=== PATIENT | male | born 1960 | race African-American/Black ===

== ENCOUNTER 2017-02-28 09:28 | Inpatient (IN) | payer OTHER ==
[2017-02-28 11:52] VITALS: BMI 23.1
--- NOTE | 2017-02-28 16:19 | HP ---
COWS - Scale Resting Pulse: 1= [place] 81-100 Sweatin=Flushed/Facial Moisture Restless Observation: 3= Extraneous Movement Pupil Size: 2= Moderately Dilated Bone or Joint Aches: 2= Severe Diffuse Aches Runny Nose/ Eye Tearin= Runny Nose/Eyes GI Upset > 30mins: 3= Vomiting/Diarrhea Tremor Observation: 2= Slight Tremor Visible Yawning Observation: 2= >3x During Session Anxiety or Irritability: 2=Irritable/Anxious Goose Flesh Skin: 0=Smooth Skin COWS Score: 21 CIWA Score - CIWA Score Nausea/Vomitin Muscle Tremors: 3 Anxiety: 3 Agitation: 3 Paroxysmal Sweats: 1-Minimal Palms Moist Orientation: 0-Oriented Tacttile Disturbances: 2-Mild Itch/Numbness/Burn Auditory Disturbances: 2-Mild Harshness/Frighten Visual Disturbances: 2-Mild Sensitivity Headache: 2-Mild CIWA-Ar Total Score: 21 Admission ROS [facility]HS - HPI Chief Complaint: i need help help to stop using heroin,alcohol,cocaine,marijuana Allergies/Adverse Reactions: Allergies Allergy/AdvReac Type Severity Reaction Status Date / Time No Known Allergies Allergy Verified 02/28/17 12:48 History of Present Illness: this 56 years old black male with heroin,alcohol,cocaine,marijuana dependence, withdrawal symptom,seeking detox,last treatment 2 months ago unknown facility, no significant period of sobriety - Ebola screening Have you traveled outside of the country in the last 21 days: No Have you had contact with anyone from an Ebola affected area: No Have you been sick,other than usual withdrawal symptoms: No Do you have a fever: No - Review of Systems Constitutional: Chills, Diaphoresis, Loss of Appetite, Malaise, Night Sweats, Changes in sleep, Weakness, Unintentional Wgt. Loss EENT: reports: Tearing, Nose Congestion Respiratory: reports: No Symptoms reported Cardiac: reports: No Symptoms Reported GI: reports: Diarrhea, Nausea, Vomiting, Abdominal cramping : reports: No Symptoms Reported Musculoskeletal: reports: No Symptoms Reported, Back Pain Integumentary: reports: Dryness Neuro: reports: Headache, Tremors Endocrine: reports: No Symptoms Reported Hematology: reports: No Symptoms Reported Psychiatric: reports: No Sypmtoms Reported, Judgement Intact, Mood/Affect Appropiate, Orientated x3 Patient History - Patient Medical History Hx Anemia: No Hx Asthma: No Hx Chronic Obstructive Pulmonary Disease (COPD): No Hx Cancer: No Hx Cardiac Disorders: No Hx Hypertension: No Hx Hypercholesterolemia: No Hx Pacemaker: No HX Cerebrovascular Accident: No Hx Seizures: No Hx Dementia: No Hx Diabetes: No Hx Gastrointestinal Disorders: No Hx Liver Disease: No Hx Genitourinary Disorders: No Hx Sexually Transmitted Disorders: No Hx Renal Disease (ESRD): No Hx Thyroid Disease: No Hx Human Immunodeficiency Virus (HIV): No (last 10/19 negative) Hx Hepatitis C: No Hx Depression: No Hx Suicide Attempt: No Hx Bipolar Disorder: No Hx Schizophrenia: No Other Medical History: no suicidal,no homicidal - Patient Surgical History Past Surgical History: No - PPD History Previous Implant?: Yes Documented Results: Negative w/o proof Implanted On Prior [facility] Admission?: No PPD to be Administered?: Yes - Smoking Cessation Smoking history: Current every day smoker Have you smoked in the past 12 months: Yes Aproximately how many cigarettes per day: 10 Hx Chewing Tobacco Use: No Initiated information on smoking cessation: Yes 'Breaking Loose' booklet given: 02/28/17 - Substances Abused Alcohol Route: Oral Frequency: Daily Amount used: BEER(15 BOTTLES `12 OZ) Age of first use: 55 Date of Last Use: 02/28/17 Heroin Route: Inhalation Frequency: Daily Amount used: 15 BAGS Age of first use: 55 Date of Last Use: 02/28/17 Cocaine Route: Smoking Frequency: Daily Amount used: $100 Age of first use: 55 Date of Last Use: 02/28/17 Marijuana/Hashish Route: Smoking Frequency: 3-6 times per week Amount used: $30 Age of first use: 54 Date of Last Use: 02/21/17 Family Disease History - Family Disease History Family History: Denies Admission Physical Exam [facility] - Vital Signs Vital Signs: Vital Signs - 24 hr 02/28/17 11:51 Temperature 97.3 F L Pulse Rate 91 H Respiratory 18 Rate Blood Pressure 140/87 - Physical General Appearance: Yes: Moderate Distress, Tremorous, Irritable, Sweating, Anxious HEENTM: Yes: Normal ENT Inspection, JODY, Pharynx Normal Respiratory: Yes: Lungs Clear, Normal Breath Sounds, No Respiratory Distress Neck: Yes: Within Normal Limits Breast: Yes: Within Normal Limits Cardiology: Yes: Within Normal Limits, Regular Rhythm, Regular Rate, S1, S2 Abdominal: Yes: Within Normal Limits, Normal Bowel Sounds, Non Tender, Flat, Soft Genitourinary: Yes: Within Normal Limits Back: Yes: Muscle Spasm Musculoskeletal: Yes: Within Normal Limits, Muscle Pain Extremities: Yes: Tremors, Other (bluish discloration of nail of rigjht big toe, dorsalis pedis pulse srong tinea pedis poor hygene of feet) Neurological: Yes: 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 - Detox or Rehab [facility] Level of Care: Medically Managed Detox Regimen/Protocol: Methadone/Librium [facility] Breath Alcohol Content Breath Alcohol Content: 0 Urine Drug Screen - Results Drug Screen Negative: No Urine Drug Screen Results: THC-Marijuana, KEREN-Cocaine, OPI-Opiates
[2017-02-28] MEDS ORDERED: MAGNESIUM HYDROX 2400MG/30ML ORAL SUSPENSION 30 ML CUP PO PRN (16:35)
[2017-02-28] MEDS ORDERED: MENTHOL/PHENOL 1 EACH UD MM PRN (16:35)
[2017-02-28] MEDS ORDERED: guaiFENesin/D-METHORPHAN HB 10 ML UNIT-DOSE CUPS PO PRN (16:35)
[2017-02-28] MEDS ORDERED: NICOTINE POLACRILEX 2 MG GUM BC PRN (16:35)
[2017-02-28] MEDS ORDERED: MAG HYDROX/AL HYDROX/SIMETH 30 ML UNIT-DOSE CUP PO PRN (16:35)
[2017-02-28] MEDS ORDERED: P-EPHED 60MG/TRIPROLIDI 2.5MG TABLET PO PRN (16:35)
[2017-02-28] MEDS ORDERED: chlordiazePOXIDE HCL 25 MG CAPSULE PO PRN (16:35)
[2017-02-28] MEDS ORDERED: hydrOXYzine PAMOATE 25 MG CAPSULE (FP) PO PRN (16:35)
[2017-02-28] MEDS ORDERED: ACETAMINOPHEN 325 MG TABLET (FP) PO PRN (16:35)
[2017-02-28] MEDS ORDERED: MAGNESIUM CITRATE 300 ML BOTTLE PO PRN (16:35)
[2017-02-28] MEDS ORDERED: IBUPROFEN 400 MG TABLET (FP) PO PRN (16:35)
[2017-02-28] MEDS ORDERED: LOPERAMIDE HCL 2 MG CAPSULE PO PRN (16:35)
[2017-02-28] MEDS ORDERED: METHADONE HCL 10 MG TABLET (FOR DETOX USE ONLY) PO ONE ×2 (16:35→23:00)
[2017-02-28] MEDS: chlordiazePOXIDE HCL 25 MG CAPSULE PO SCH ×2 (17:59→22:33)
[2017-02-28] MEDS: NICOTINE 21 MG/24 HOURS TOPICAL PATCH TD SCH (17:59)
[2017-02-28] MEDS: TOLNAFTATE 1% CREAM 15 GM TUBE TP SCH ×2 (18:00→22:33)
[2017-02-28] MEDS ORDERED: TUBERCULIN PPD 5 TU/0.1ML VIAL ID ONE (19:17)
[2017-02-28] MEDS: THIAMINE HCL 100 MG TABLET (FP) PO SCH (22:32)
[2017-03-01] MEDS: chlordiazePOXIDE HCL 25 MG CAPSULE PO SCH ×4 (05:48→22:21)
[2017-03-01] MEDS ORDERED: METHADONE HCL 10 MG TABLET (FOR DETOX USE ONLY) PO SCH (10:00)
[2017-03-01 10:01] LABS: MCH 30.3 pg (25.7-33.7); MCHC 34.2 g/dl (32.0-35.9); MEAN CELL VOLUME 88.6 fl (80-96); MEAN PLT VOLUME 7.6 fl (7.5-11.1); PLATELET COUNT 188 K/MM3 (134-434); RDW 14.8 % (11.9-15.9); WHITE BLOOD COUNT 4.7 K/mm3 (4.0-10.0)
[2017-03-01 10:10] LABS: ALBUMIN 3.4 g/dl (3.4-5.0); ANION GAP 7 (8-16); CALCIUM 8.1 mg/dL (8.5-10.1); CO2 28 mmol/L (21-32); GLUCOSE,RANDOM 123 mg/dL (74-106)
[2017-03-01] MEDS: PRENATAL VITAMINS W/ FOLIC ACID TABLET (FP) PO SCH (10:11)
[2017-03-01] MEDS: NICOTINE 21 MG/24 HOURS TOPICAL PATCH TD SCH (10:11)
[2017-03-01 10:15] LABS: ALK PHOS 64 U/L (45-117); BILIRUBIN,TOTAL 0.5 mg/dL (0.2-1.0); CREATININE 1.3 mg/dL (0.7-1.3); SGOT/AST 40 U/L (15-37); SGPT/ALT 74 U/L (12-78); TOT PROT 6.4 g/dl (6.4-8.2)
--- NOTE | 2017-03-01 11:27 | PN ---
[facility] CIWA - CIWA Score Nausea/Vomitin-No Nausea/No Vomiting Muscle Tremors: 2 Anxiety: 4-Mod. Anxious/Guarded Agitation: 3 Paroxysmal Sweats: 1-Minimal Palms Moist Orientation: 0-Oriented Tacttile Disturbances: 3-Moderate Itch/Numb/Burn Auditory Disturbances: 0-None Visual Disturbances: 0-None Headache: 0-None Present CIWA-Ar Total Score: 13 S COWS - Scale Resting Pulse: 0= DC 80 or Below Sweatin= Chills/Flushing Restless Observation: 0= Sits Still Pupil Size: 2= Moderately Dilated Bone or Joint Aches: 4=Acute Joint/Muscle Pain Runny Nose/ Eye Tearin= Nasal Congestion GI Upset > 30mins: 1= Stomach Cramp Tremor Observation of Outstretched Hands: 2= Slight Tremor Visible Yawning Observation: 1= 1-2x During Session Anxiety or Irritability: 2=Irritable/Anxious Goose Flesh Skin: 0=Smooth Skin COWS Score: 14 S Progress Note (SOAP) Subjective: ANXIETY,IRRITABILITY,"WOOZY",FATIGUE. Objective: 03/01/17 11:27 Vital Signs Temperature 97.1 F L 03/01/17 09:30 Pulse Rate 85 03/01/17 09:30 Respiratory Rate 18 03/01/17 09:30 Blood Pressure 119/79 03/01/17 09:30 O2 Sat by Pulse Oximetry (%) Laboratory Last Values WBC 4.7 K/mm3 (4.0-10.0) 03/01/17 07:00 RBC 4.46 M/mm3 (4.00-5.60) 03/01/17 07:00 Hgb 13.5 GM/dL (11.7-16.9) 03/01/17 07:00 Hct 39.5 % (35.4-49) 03/01/17 07:00 MCV 88.6 fl (80-96) 03/01/17 07:00 MCH 30.3 pg (25.7-33.7) 03/01/17 07:00 MCHC 34.2 g/dl (32.0-35.9) 03/01/17 07:00 RDW 14.8 % (11.9-15.9) 03/01/17 07:00 Plt Count 188 K/MM3 (134-434) 03/01/17 07:00 MPV 7.6 fl (7.5-11.1) 03/01/17 07:00 Manual Slide Review No Result Required. 03/01/17 07:00 Sodium 140 mmol/L (136-145) 03/01/17 07:00 Potassium 4.0 mmol/L (3.5-5.1) 03/01/17 07:00 Chloride 105 mmol/L (98-107) 03/01/17 07:00 Carbon Dioxide 28 mmol/L (21-32) 03/01/17 07:00 Anion Gap 7 (8-16) L 03/01/17 07:00 BUN 20 mg/dL (7-18) H 03/01/17 07:00 Creatinine 1.3 mg/dL (0.7-1.3) 03/01/17 07:00 Creat Clearance w eGFR 56.90 (>60) 03/01/17 07:00 Random Glucose 123 mg/dL (74-106) H 03/01/17 07:00 Calcium 8.1 mg/dL (8.5-10.1) L 03/01/17 07:00 Total Bilirubin 0.5 mg/dL (0.2-1.0) 03/01/17 07:00 AST 40 U/L (15-37) H 03/01/17 07:00 ALT 74 U/L (12-78) 03/01/17 07:00 Alkaline Phosphatase 64 U/L (45-117) 03/01/17 07:00 Total Protein 6.4 g/dl (6.4-8.2) 03/01/17 07:00 Albumin 3.4 g/dl (3.4-5.0) 03/01/17 07:00 Assessment: 03/01/17 11:27 WITHDRAWAL SX Plan: CONTINUE DETOX. HOLD LIBRIUM AT 10 AM TODAY.
[2017-03-01] MEDS: TOLNAFTATE 1% CREAM 15 GM TUBE TP SCH ×2 (12:22→22:22)
[2017-03-01] MEDS: ARTIFICIAL TEARS (POLYVINYL ALCOHOL 1.4%) OPTH DROPS OU SCH ×2 (15:20→22:22)
--- NOTE | 2017-03-01 19:11 | PN ---
[facility] Progress Note Note: RECEIVED NURSE CALL THAT THE PATIENT REFUSES LIBRIUM 25MG X 1 DOSE TODAY
[2017-03-01 22:01] LABS: URINE APPEARANCE CLEAR; URINE BILIRUBIN NEGATIVE (NEGATIVE); URINE BLOOD NEGATIVE (NEGATIVE); URINE COLOR YELLOW; URINE GLUCOSE (UA) NEGATIVE (NEGATIVE); URINE KETONE NEGATIVE (NEGATIVE); URINE NITRITE NEGATIVE (NEGATIVE); URINE PROTEIN NEGATIVE (NEGATIVE); URINE UROBILINOGEN NEGATIVE mg/dL (0.2-1.0)
[2017-03-01] MEDS: THIAMINE HCL 100 MG TABLET (FP) PO SCH (22:21)
--- NOTE | 2017-03-02 01:02 | EKG ---
Test Reason : Blood Pressure : / mmHG Vent. Rate : 084 BPM Atrial Rate : 084 BPM P-R Int : 130 ms QRS Dur : 084 ms QT Int : 368 ms P-R-T Axes : 069 070 053 degrees QTc Int : 434 ms NORMAL SINUS RHYTHM NORMAL ECG NO PREVIOUS ECGS AVAILABLE Confirmed by HARSHAL EL, SAUL ([id number]) on 03/02/2017 1:02:13 AM Referred By: TAYA BARROSO Confirmed By:SAUL CAPUTO MD
[2017-03-02] MEDS: chlordiazePOXIDE HCL 25 MG CAPSULE PO SCH ×2 (05:59→10:36)
[2017-03-02] MEDS: ARTIFICIAL TEARS (POLYVINYL ALCOHOL 1.4%) OPTH DROPS OU SCH (06:01)
[2017-03-02 09:10] LABS: URINE LEUK ESTERASE Negative (NEGATIVE)
[2017-03-02] MEDS ORDERED: METHADONE HCL 5 MG TABLET (FOR DETOX USE ONLY) PO SCH (10:00)
[2017-03-02] MEDS: PRENATAL VITAMINS W/ FOLIC ACID TABLET (FP) PO SCH (10:36)
[2017-03-02] MEDS: TOLNAFTATE 1% CREAM 15 GM TUBE TP SCH (10:37)
[2017-03-02] MEDS: NICOTINE 21 MG/24 HOURS TOPICAL PATCH TD SCH (10:37)
--- NOTE | 2017-03-02 11:02 | PN ---
[facility] CIWA - CIWA Score Nausea/Vomitin-No Nausea/No Vomiting Muscle Tremors: 3 Anxiety: 4-Mod. Anxious/Guarded Agitation: 4-Moderately Restless Paroxysmal Sweats: 1-Minimal Palms Moist Orientation: 0-Oriented Tacttile Disturbances: 2-Mild Itch/Numbness/Burn Auditory Disturbances: 0-None Visual Disturbances: 0-None Headache: 0-None Present CIWA-Ar Total Score: 14 S COWS - Scale Resting Pulse: 1= [place] 81-100 Sweatin= Chills/Flushing Restless Observation: 3= Extraneous Movement Pupil Size: 0= Normal to Room Light Bone or Joint Aches: 2= Severe Diffuse Aches Runny Nose/ Eye Tearin= Nasal Congestion GI Upset > 30mins: 0= None Tremor Observation of Outstretched Hands: 1= Tremor [place]bit, Not Seen Yawning Observation: 1= 1-2x During Session Anxiety or Irritability: 2=Irritable/Anxious Goose Flesh Skin: 0=Smooth Skin COWS Score: 12 [facility] Progress Note (SOAP) Subjective: ANXIETY,IRRITABLE,SWEATS,INTERMITTENT SLEEP. Objective: 03/02/17 11:01 Vital Signs Temperature 95.9 F L 03/02/17 09:10 Pulse Rate 95 H 03/02/17 09:10 Respiratory Rate 18 03/02/17 09:10 Blood Pressure 115/81 03/02/17 09:10 O2 Sat by Pulse Oximetry (%) Laboratory Last Values WBC 4.7 K/mm3 (4.0-10.0) 03/01/17 07:00 RBC 4.46 M/mm3 (4.00-5.60) 03/01/17 07:00 Hgb 13.5 GM/dL (11.7-16.9) 03/01/17 07:00 Hct 39.5 % (35.4-49) 03/01/17 07:00 MCV 88.6 fl (80-96) 03/01/17 07:00 MCH 30.3 pg (25.7-33.7) 03/01/17 07:00 MCHC 34.2 g/dl (32.0-35.9) 03/01/17 07:00 RDW 14.8 % (11.9-15.9) 03/01/17 07:00 Plt Count 188 K/MM3 (134-434) 03/01/17 07:00 MPV 7.6 fl (7.5-11.1) 03/01/17 07:00 Manual Slide Review No Result Required. 03/01/17 07:00 Sodium 140 mmol/L (136-145) 03/01/17 07:00 Potassium 4.0 mmol/L (3.5-5.1) 03/01/17 07:00 Chloride 105 mmol/L (98-107) 03/01/17 07:00 Carbon Dioxide 28 mmol/L (21-32) 03/01/17 07:00 Anion Gap 7 (8-16) L 03/01/17 07:00 BUN 20 mg/dL (7-18) H 03/01/17 07:00 Creatinine 1.3 mg/dL (0.7-1.3) 03/01/17 07:00 Creat Clearance w eGFR 56.90 (>60) 03/01/17 07:00 Random Glucose 123 mg/dL (74-106) H 03/01/17 07:00 Calcium 8.1 mg/dL (8.5-10.1) L 03/01/17 07:00 Total Bilirubin 0.5 mg/dL (0.2-1.0) 03/01/17 07:00 AST 40 U/L (15-37) H 03/01/17 07:00 ALT 74 U/L (12-78) 03/01/17 07:00 Alkaline Phosphatase 64 U/L (45-117) 03/01/17 07:00 Total Protein 6.4 g/dl (6.4-8.2) 03/01/17 07:00 Albumin 3.4 g/dl (3.4-5.0) 03/01/17 07:00 Urine Color Yellow 03/01/17 16:36 Urine Appearance Clear 03/01/17 16:36 Urine pH 6.0 (5.0-8.0) 03/01/17 16:36 Ur Specific Wilson 1.016 (1.001-1.035) 03/01/17 16:36 Urine Protein Negative (NEGATIVE) 03/01/17 16:36 Urine Glucose (UA) Negative (NEGATIVE) 03/01/17 16:36 Urine Ketones Negative (NEGATIVE) 03/01/17 16:36 Urine Blood Negative (NEGATIVE) 03/01/17 16:36 Urine Nitrite Negative (NEGATIVE) 03/01/17 16:36 Urine Bilirubin Negative (NEGATIVE) 03/01/17 16:36 Urine Urobilinogen Negative mg/dL (0.2-1.0) 03/01/17 16:36 Ur Leukocyte Esterase Negative (NEGATIVE) 03/01/17 16:36 RPR Titer Nonreactive (NONREACTIVE) 03/01/17 07:00 Assessment: 03/02/17 11:02 WITHDRAWAL SX Plan: CONTINUE DETOX
[2017-03-02 13:07] VITALS: BP 109/76; PULSE 87; TEMP 97.2
[2017-03-02] MEDS ORDERED: chlordiazePOXIDE 5 MG CAPSULE PO SCH (17:00)
[2017-03-03] MEDS ORDERED: chlordiazePOXIDE HCL 10 MG CAPSULE PO SCH (17:00)
[2017-03-04] MEDS ORDERED: METHADONE HCL 10 MG TABLET (FOR DETOX USE ONLY) PO SCH (10:00)
[2017-03-05] MEDS ORDERED: METHADONE HCL 5 MG TABLET (FOR DETOX USE ONLY) PO SCH (06:00)
== END 2017-03-02 13:12 | disposition home or self-care (01) | DRG 773 ==
LOC: YASAS 09:28 → Y3N 15:53
PROVIDERS: ADMIT Internal Medicine; ATTEND Internal Medicine
PROC: HZ2ZZZZ Detoxification Services for Substance Abuse Treatment (ICD-10-PCS; principal; 2017-02-28)
DX: F11.23 Opioid dependence with withdrawal (principal); F14.20 Cocaine dependence, uncomplicated; F12.20 Cannabis dependence, uncomplicated; F17.213 Nicotine dependence, cigarettes, with withdrawal; B35.3 Tinea pedis; B35.1 Tinea unguium; Z87.898 Personal history of other specified conditions; Z59.0 Homelessness
CPT/HCPCS: 36415; 80053; 81003; 85027; 86593; 93005; 93010

== ENCOUNTER 2022-10-22 11:23 | Inpatient (IN) | payer OTHER ==
[2022-10-22] MEDS ORDERED: hydrOXYzine PAMOATE 25 MG CAPSULE (FP) PO PRN (13:13)
[2022-10-22] MEDS ORDERED: NICOTINE 10 MG CARTRIDGE (INHALER) IH PRN (13:13)
[2022-10-22] MEDS ORDERED: COLLOIDAL OATMEAL 1 BAR EACH TP PRN (13:13)
[2022-10-22] MEDS ORDERED: IBUPROFEN 400 MG TABLET (FP) PO PRN (13:13)
[2022-10-22] MEDS ORDERED: BENZOCAINE/MENTHOL (CHLORASEPTIC ) LOZENGE MM PRN (13:13)
[2022-10-22] MEDS ORDERED: NALOXONE HCL (KLOXXADO) 8 MG SPRAY NS PRN (13:13)
[2022-10-22] MEDS ORDERED: IBUPROFEN 600 MG TABLET (FP) PO PRN (13:13)
[2022-10-22] MEDS ORDERED: MAG HYDROX/AL HYDROX/SIMETH 30 ML UNIT-DOSE CUP PO PRN (13:13)
[2022-10-22] MEDS ORDERED: NALOXONE HCL 0.4 MG/ML VIAL IVPUSH PRN (13:13)
[2022-10-22] MEDS ORDERED: guaiFENesin 600 MG TABLET.ER (FP) PO PRN (13:13)
[2022-10-22] MEDS ORDERED: ACETAMINOPHEN 325 MG TABLET (FP) PO PRN (13:13)
[2022-10-22] MEDS ORDERED: LOPERAMIDE HCL 2 MG CAPSULE PO PRN (13:13)
[2022-10-22] MEDS ORDERED: BENZONATATE 200 MG CAPSULE PO PRN (13:13)
[2022-10-22] MEDS ORDERED: POLYETHYLENE GLYCOL (HEALTHYLAX) 3350 17 GM PACKET PO PRN (13:13)
[2022-10-22] MEDS ORDERED: AMMONIUM LACTATE 12% LOTION 225 GM BOTTLE TP PRN (13:13)
[2022-10-22] MEDS ORDERED: MAGNESIUM HYDROX 2400MG/30ML ORAL SUSPENSION 30 ML CUP PO PRN (13:13)
[2022-10-22] MEDS ORDERED: METHOCARBAMOL 500 MG TABLET PO PRN (13:13)
[2022-10-22] MEDS ORDERED: NICOTINE 14 MG/24 HOURS TOPICAL PATCH TD PRN (13:13)
[2022-10-22] MEDS ORDERED: NICOTINE POLACRILEX 4 MG GUM BUC PRN (13:13)
[2022-10-22] MEDS ORDERED: ALBUTEROL SO4 HFA INHALER IH PRN (13:15)
[2022-10-22] MEDS: MELATONIN 5 MG TABLETS PO SCH (21:27)
[2022-10-22] MEDS: THIAMINE HCL 100 MG TABLET (FP) PO SCH (21:27)
[2022-10-23] MEDS ORDERED: PRENATAL VITAMINS W/ FOLIC ACID TABLET (FP) PO SCH (10:00)
[2022-10-23] MEDS ORDERED: PRENATAL VITAMINS W/ FOLIC ACID TABLET (FP) PO PRN (12:35)
[2022-10-23] MEDS: THIAMINE HCL 100 MG TABLET (FP) PO SCH (21:44)
[2022-10-23] MEDS: MELATONIN 5 MG TABLETS PO SCH (21:44)
[2022-10-24] MEDS: THIAMINE HCL 100 MG TABLET (FP) PO SCH (21:31)
[2022-10-24] MEDS: MELATONIN 5 MG TABLETS PO SCH (21:31)
[2022-10-25] MEDS: MELATONIN 5 MG TABLETS PO SCH (21:32)
[2022-10-25] MEDS: THIAMINE HCL 100 MG TABLET (FP) PO SCH (21:32)
[2022-10-26] MEDS: MELATONIN 5 MG TABLETS PO SCH (21:33)
[2022-10-26] MEDS: THIAMINE HCL 100 MG TABLET (FP) PO SCH (21:33)
[2022-10-27] MEDS: MELATONIN 5 MG TABLETS PO SCH (21:47)
[2022-10-27] MEDS: THIAMINE HCL 100 MG TABLET (FP) PO SCH (21:47)
[2022-10-28] MEDS: MELATONIN 5 MG TABLETS PO SCH (21:25)
[2022-10-28] MEDS: THIAMINE HCL 100 MG TABLET (FP) PO SCH (21:25)
[2022-10-29] MEDS: THIAMINE HCL 100 MG TABLET (FP) PO SCH (21:32)
[2022-10-29] MEDS: MELATONIN 5 MG TABLETS PO SCH (21:32)
[2022-10-30 08:03] VITALS: BP 118/86; PULSE 106; RESP 18; TEMP 96.9
== END 2022-10-30 08:45 | disposition home or self-care (01) | DRG 772 ==
LOC: YASAS 11:23 → Y3E 11:24
PROVIDERS: ADMIT Allergy & Immunology; ATTEND Psychiatry & Neurology Pain Medicine
PROC: HZ42ZZZ Group Counseling for Substance Abuse Treatment, Cognitive-Behavioral (ICD-10-PCS; principal; 2022-10-22)
DX: F11.20 Opioid dependence, uncomplicated (principal); F14.20 Cocaine dependence, uncomplicated; F12.20 Cannabis dependence, uncomplicated; F17.210 Nicotine dependence, cigarettes, uncomplicated; B35.1 Tinea unguium; B35.3 Tinea pedis
CPT/HCPCS: 36415; 86803

== ENCOUNTER 2023-07-22 21:49 | Inpatient (IN) | payer OTHER ==
[2023-07-22 22:46] VITALS: BMI 25.0
[2023-07-22] MEDS ORDERED: BENZONATATE 200 MG CAPSULE PO PRN (23:27)
[2023-07-22] MEDS ORDERED: MAG HYDROX/AL HYDROX/SIMETH 30 ML UNIT-DOSE CUP PO PRN (23:27)
[2023-07-22] MEDS ORDERED: MAGNESIUM HYDROX 2400MG/30ML ORAL SUSPENSION 30 ML CUP PO PRN (23:27)
[2023-07-22] MEDS ORDERED: LOPERAMIDE HCL 2 MG CAPSULE PO PRN (23:27)
[2023-07-22] MEDS ORDERED: POLYETHYLENE GLYCOL (HEALTHYLAX) 3350 17 GM PACKET PO PRN (23:27)
[2023-07-22] MEDS ORDERED: NALOXONE HCL (KLOXXADO) 8 MG SPRAY NS PRN (23:27)
[2023-07-22] MEDS ORDERED: guaiFENesin 600 MG TABLET.ER (FP) PO PRN (23:27)
[2023-07-22] MEDS ORDERED: NALOXONE HCL 0.4 MG/ML VIAL IM PRN (23:27)
[2023-07-22] MEDS ORDERED: hydrOXYzine PAMOATE 25 MG CAPSULE (FP) PO PRN (23:27)
[2023-07-22] MEDS ORDERED: ONDANSETRON *ODT* 4 MG TABLET SL PRN (23:27)
[2023-07-22] MEDS ORDERED: BENZOCAINE/MENTHOL (CHLORASEPTIC ) LOZENGE MM PRN (23:27)
[2023-07-22] MEDS ORDERED: IBUPROFEN 400 MG TABLET (FP) PO PRN (23:27)
[2023-07-22] MEDS ORDERED: BISMUTH SUBSALICYLATE 524 MG/30 ML PO PRN (23:27)
[2023-07-22] MEDS ORDERED: NICOTINE POLACRILEX 4 MG GUM BUC PRN (23:27)
[2023-07-22] MEDS ORDERED: DICYCLOMINE HCL 10 MG CAPSULE PO PRN (23:27)
[2023-07-22] MEDS ORDERED: OXYMETAZOLINE 0.05% NASAL SOLUTION 15 ML BOTTLE NS PRN (23:51)
[2023-07-23] MEDS: DOCUSATE SODIUM 100 MG CAPSULE (FP) PO ONE (00:15)
[2023-07-23] MEDS: DOCUSATE SODIUM 100 MG CAPSULE (FP) PO SCH (05:20)
[2023-07-23] MEDS: NICOTINE 14 MG/24 HOURS TOPICAL PATCH TD SCH (10:30)
[2023-07-23] MEDS: PRENATAL VITAMINS W/ FOLIC ACID TABLET (FP) PO SCH (10:33)
[2023-07-23 11:51] LABS: HEMATOCRIT 33.3 % (35.4-49); HEMOGLOBIN 11.3 GM/dL (11.7-16.9); MCH 29.1 pg (25.7-33.7); MCHC 33.8 g/dl (32.0-35.9); MEAN PLT VOLUME 7.5 fl (7.5-11.1); PLATELET COUNT 283 10^3/uL (134-434); RBC 3.87 M/mm3 (4.00-5.60); RDW 14.6 % (11.9-15.9); WHITE BLOOD COUNT 4.8 K/mm3 (4.0-10.0)
[2023-07-23 11:54] LABS: CHLORIDE 110 mmol/L (98-107); SODIUM 142 mmol/L (136-145)
[2023-07-23 12:02] LABS: CALCIUM 8.6 mg/dL (8.5-10.1)
[2023-07-23 12:03] LABS: ALBUMIN 2.9 g/dl (3.4-5.0); ANION GAP 3 mmol/L (4-13); BLOOD UREA NITROGEN 19.8 mg/dL (7-18); CO2 28 mmol/L (21-32); GLUCOSE,RANDOM 130 mg/dL (74-106)
[2023-07-23 12:04] LABS: BILIRUBIN,TOTAL 0.2 mg/dL (0.2-1); TOT PROT 6.2 g/dl (6.4-8.2)
[2023-07-23 12:05] LABS: ALK PHOS 69 U/L (45-117); SGOT/AST 20 U/L (15-37)
[2023-07-23 12:06] LABS: CREATININE 0.9 mg/dL (0.55-1.3); SGPT/ALT 29 U/L (13-61)
[2023-07-23] MEDS: methaDONE HCL 10 MG TABLET (FOR DETOX USE ONLY) PO ONE ×2 (13:13→13:16)
[2023-07-23] MEDS: MELATONIN 5 MG TABLETS PO SCH (23:42)
[2023-07-23] MEDS: THIAMINE 100 MG TABLET PO SCH (23:42)
[2023-07-25] MEDS: cloNIDine HCL 0.1 MG TABLET PO PRN (06:54)
[2023-07-25] MEDS: methaDONE HCL 10 MG TABLET (FOR DETOX USE ONLY) PO ONE (09:15)
[2023-07-26] MEDS: ACETAMINOPHEN 325 MG TABLET (FP) PO PRN (14:14)
[2023-07-27] MEDS: methaDONE HCL 10 MG TABLET (FOR DETOX USE ONLY) PO ONE (10:16)
[2023-07-27] MEDS: IBUPROFEN 600 MG TABLET (FP) PO PRN (14:29)
[2023-07-28 08:59] VITALS: BP 130/82; PULSE 87; RESP 18; TEMP 97.7
== END 2023-07-28 09:52 | disposition other institution (70) | DRG 773 ==
LOC: YASAS 21:49 → Y3N 23:31
PROVIDERS: ADMIT Allergy & Immunology; ATTEND Surgery
PROC: HZ2ZZZZ Detoxification Services for Substance Abuse Treatment (ICD-10-PCS; principal; 2023-07-22)
DX: F11.23 Opioid dependence with withdrawal (principal); F10.230 Alcohol dependence with withdrawal, uncomplicated; F14.20 Cocaine dependence, uncomplicated; F12.20 Cannabis dependence, uncomplicated; F17.210 Nicotine dependence, cigarettes, uncomplicated; J45.20 Mild intermittent asthma, uncomplicated; K59.03 Drug induced constipation; M54.50 Low back pain, unspecified; G89.29 Other chronic pain
CPT/HCPCS: 36415; 80053; 80307; 85027; 86780; 93005; 93010

== ENCOUNTER 2023-09-23 22:38 | Inpatient (IN) | payer OTHER ==
[2023-09-23 23:31] VITALS: BMI 20.7
[2023-09-23] MEDS ORDERED: NALOXONE (NARCAN) HCL 4 MG/0.1 ML SPRAY NS PRN (23:40)
[2023-09-23] MEDS ORDERED: ONDANSETRON *ODT* 4 MG TABLET SL PRN (23:40)
[2023-09-23] MEDS ORDERED: MAG HYDROX/AL HYDROX/SIMETH 30 ML UNIT-DOSE CUP PO PRN (23:40)
[2023-09-23] MEDS ORDERED: guaiFENesin 600 MG TABLET.ER (FP) PO PRN (23:40)
[2023-09-23] MEDS ORDERED: BENZOCAINE/MENTHOL (CHLORASEPTIC ) LOZENGE MM PRN (23:40)
[2023-09-23] MEDS ORDERED: POLYETHYLENE GLYCOL (HEALTHYLAX) 3350 17 GM PACKET PO PRN (23:40)
[2023-09-23] MEDS ORDERED: LOPERAMIDE HCL 2 MG CAPSULE PO PRN (23:40)
[2023-09-23] MEDS ORDERED: DICYCLOMINE HCL 10 MG CAPSULE PO PRN (23:40)
[2023-09-23] MEDS ORDERED: BENZONATATE 200 MG CAPSULE PO PRN (23:40)
[2023-09-23] MEDS ORDERED: NALOXONE HCL 0.4 MG/ML VIAL IM PRN (23:40)
[2023-09-23] MEDS ORDERED: P-EPHED 60MG/TRIPROLIDI 2.5MG TABLET PO PRN (23:40)
[2023-09-23] MEDS ORDERED: BISMUTH SUBSALICYLATE 524 MG/30 ML PO PRN (23:40)
[2023-09-23] MEDS ORDERED: MAGNESIUM HYDROX 2400MG/30ML ORAL SUSPENSION 30 ML CUP PO PRN (23:40)
[2023-09-23] MEDS ORDERED: IBUPROFEN 400 MG TABLET (FP) PO PRN (23:40)
[2023-09-23] MEDS ORDERED: NICOTINE POLACRILEX 2 MG GUM BUC PRN (23:40)
[2023-09-23] MEDS ORDERED: IBUPROFEN 600 MG TABLET (FP) PO PRN (23:40)
[2023-09-23] MEDS ORDERED: NICOTINE POLACRILEX 2 MG LOZENGE BC PRN (23:40)
[2023-09-23] MEDS ORDERED: ACETAMINOPHEN 325 MG TABLET (FP) PO PRN (23:40)
[2023-09-23] MEDS ORDERED: ALBUTEROL SO4 HFA INHALER IH PRN (23:45)
[2023-09-23] MEDS ORDERED: diazePAM 5 MG TABLET PO PRN (23:51)
[2023-09-24] MEDS: MELATONIN 5 MG TABLETS PO ONE (00:40)
[2023-09-24] MEDS ORDERED: methaDONE HCL 10 MG TABLET (FOR DETOX USE ONLY) ONE (00:43)
[2023-09-24] MEDS: methaDONE HCL 10 MG TABLET (FOR DETOX USE ONLY) PO ONE (00:45)
[2023-09-24] MEDS ORDERED: methaDONE HCL 10 MG TABLET (FOR DETOX USE ONLY) PO ONE (12:06)
[2023-09-24] MEDS: PRENATAL VITAMINS W/ FOLIC ACID TABLET (FP) PO SCH (12:20)
[2023-09-24 15:03] LABS: HEMATOCRIT 32.6 % (35.4-49); HEMOGLOBIN 11.2 GM/dL (11.7-16.9); MCHC 34.2 g/dl (32.0-35.9); MEAN CELL VOLUME 84.7 fl (80-96); MEAN PLT VOLUME 7.7 fl (7.5-11.1); PLATELET COUNT 280 10^3/uL (134-434); RBC 3.85 M/mm3 (4.00-5.60); RDW 15.4 % (11.9-15.9); WHITE BLOOD COUNT 4.7 K/mm3 (4.0-10.0)
[2023-09-24 15:06] LABS: POTASSIUM 4.3 mmol/L (3.5-5.1)
[2023-09-24 15:09] LABS: ALBUMIN 3.2 g/dl (3.4-5.0); BLOOD UREA NITROGEN 22.8 mg/dL (7-18); CALCIUM 8.5 mg/dL (8.5-10.1)
[2023-09-24 15:12] LABS: CREATININE 1.3 mg/dL (0.55-1.3)
[2023-09-24 15:14] LABS: BILIRUBIN,TOTAL 0.2 mg/dL (0.2-1); TOT PROT 6.2 g/dl (6.4-8.2)
[2023-09-24] MEDS ORDERED: ALBUTEROL SO4 HFA INHALER IH PRN (16:39)
[2023-09-24] MEDS: cloNIDine HCL 0.1 MG TABLET PO PRN (21:05)
[2023-09-24] MEDS: MELATONIN 5 MG TABLETS PO SCH (21:05)
[2023-09-24] MEDS: THIAMINE 100 MG TABLET PO SCH (21:05)
[2023-09-25] MEDS: methaDONE HCL 10 MG TABLET (FOR DETOX USE ONLY) PO ONE (09:36)
[2023-09-27] MEDS: methaDONE HCL 10 MG TABLET (FOR DETOX USE ONLY) PO ONE (10:09)
[2023-09-27] MEDS: SILVER SULFADIAZINE 1% TOP CREAM 50 GM JAR TP SCH (14:07)
[2023-09-27] MEDS: METHOCARBAMOL 500 MG TABLET PO PRN (22:55)
[2023-09-28 06:33] VITALS: BP 137/85; PULSE 85; RESP 16; TEMP 98
== END 2023-09-28 10:53 | disposition home or self-care (01) | DRG 773 ==
LOC: YASAS 22:38 → Y6N 09-24 08:09
PROVIDERS: ADMIT Allergy & Immunology; ATTEND Surgery
PROC: HZ2ZZZZ Detoxification Services for Substance Abuse Treatment (ICD-10-PCS; principal; 2023-09-24)
DX: F11.23 Opioid dependence with withdrawal (principal); F14.20 Cocaine dependence, uncomplicated; F12.20 Cannabis dependence, uncomplicated; F17.210 Nicotine dependence, cigarettes, uncomplicated; E86.0 Dehydration; J45.20 Mild intermittent asthma, uncomplicated; R79.89 Other specified abnormal findings of blood chemistry; R63.4 Abnormal weight loss; Z68.20 Body mass index [BMI] 20.0-20.9, adult
CPT/HCPCS: 36415; 80053; 80305; 80307; 85027; 86780